=== PATIENT | female | born 1965 | race Caucasian/White ===

== ENCOUNTER 2025-08-05 07:21 | Day surgery (SDC) | payer OTHER, SELFPAY ==
[2025-08-05] VITALS (11 sets, daily range): BP systolic 85–130; BP diastolic 52–69; PULSE 45–91; RESP 14–16; TEMP 36.1–36.6; O2SAT 96–100; BMI 32.8
--- NOTE | 2025-08-05 07:32 | HP.PCM_ITS ---
[facility] - General General Date of Service: 08/05/25 HPI Narrative HUSSAIN DONNELLY, is a 60 F who presents for screening colonoscopy. Patient last colonoscopy was in 2019 did have a polyp at that time. Patient's mom did pass at age 48 due to colon cancer?metastatic at diagnosis, patient's maternal uncle also had colon cancer. Patient has bowel movements daily denies any blood. Denies any chronic abdominal pain/nausea/vomiting/reflux. [facility] Medical History (Updated 08/05/25 @ 08:[address] Isiah Smalls MD) Normal colonoscopy Cancer Post-menopausal Thyroid disease Anemia Non-smoker History of stress test Family history of colon cancer Personal history of colonic polyps Screening for colon cancer Home Medications ?Medication ?Instructions ?Recorded ?Last Taken ?Type levothyroxine 100 mcg tablet 100 mcg PO DAILY 07/31/25 08/05/25 05:00 History triamcinolone acetonide 55 mcg 1 spray intranasal RIMMA Y PRN 07/31/25 Unknown History nasal spray aerosol (Aller-Abhinav) ALLERGIES Allergy/AdvReac Type Severity Reaction Status Date / Time Penicillins (PCN) Allergy Intermediate HIVES Verified 08/05/25 07:45 Surgical History (Updated 08/05/25 @ 08:[address] Isiah Smalls MD) S/P colonoscopic polypectomy History of hysterectomy Social History Smoking Status: Never smoker Past Medical/Surgical History Planned Operation Planned Operative Procedure(s): COLONOSCOPY Previous Hospitalizations/Surgeries HX Hospitalizations: No Any Problems With Anesthesia: No You/Your Family Experience Fever (Hyperthermia) With Anes: No Cholinesterase deficiency: No Cardiovascular Hx of Irregular Heartbeat and/or Afib: No Hx Heart Attack: No Hx Congestive Heart Failure: No Hx Hypertension: No Hx Pacemaker: No Respiratory Hx Chronic Obstructive Pulmonary Disease (COPD): No Hx Asthma: No Hx Emphysema: No Hx Sleep Apnea: No Hx Respiratory Tract Infection/Cold (presently): No Do You Snore Loudly (louder than talking or can be heard): No Do You Often Feel Tired/ Fatigued/ Sleepy Dring Daytime?: No Has Anyone Observed You Stop Breathing During Sleep?: No Result (for STOP score): Negative Smoking Status: Never smoker Gastrointestinal Hx Ulcer: No Neurological Hx Seizures: No Hx Headaches: No Does patient have nerve stimulator: No Reproduction : No Allergies Penicillins (PCN) Allergy (Intermediate, Verified 08/05/25 07:45) HIVES Discharge Is Pt Admitted From a Long Term, or a Skilled Nursing: No Who Could Help: After D/C, Where Do you Plan to Go: Return Home Physical Exam Const alert, oriented x3 and no apparent distress HEENT normocephalic and head/scalp atraumatic Resp normal respiratory effort Cardio regular rate GI soft to palpation and non-tender; Negative for non-distended Palpation: Negative for guarding Extremity no clubbing, cyanosis or edema Skin no rashes or lesions noted Neuro CN's II-XII intact bilaterally Psych mental status grossly normal Assessment & Plan Assessment/Plan (1) Personal history of colonic polyps: (2) Family history of colon cancer: Surgery Risks - Colonoscopy I discussed with the patient the risks of the procedure: Yes Risks Include but are not Limited To: Risks include but are not limited to: Bleeding, perforation requiring further surgery, inability to complete colonoscopy requiring barium enema.
[2025-08-05] MEDS: Lactated Ringers 1,000 ML 15 ML IV (07:57)
--- NOTE | 2025-08-05 08:27 | PCM.PRE.AN2 ---
ASA Classification* ASA Classification ASA Classification: 2 Assessment & Plan Anesthesia* Anesthesia Assessment Anesthesia Assessment: Discussed sedation and/or anesthesia options, risks, benefits, and alternatives with patient/parents/legal guardian/POA. Questions invited. The patient/parents/legal guardian/POA seems to understand and agrees to proceed with anesthesia plan. Reviewed the physical assessment, medical history, allergy history and patient home medications list prior to surgery/procedure/anesthetic and documented any changes. Performed airway and anesthesia risk assessments. 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 When Was Last Pacemaker Check QUESTION #4 FULL TEXT: You/Your Family Experience fever (hyperthermia) with Anesthesia Last Oral Intake Last Oral intake: Last Oral Intake NPO since 18:00 08/05/25 07:46 Meds taken in AM with sips of Yes 08/05/25 07:46 water? Meds patient instructed to see med list 08/05/25 07:46 take am of surgery Any additional information?: Yes Meds taken in AM with sips of water?: Yes PONV PONV - classified advertising manager: PONV - classified advertising manager Female Yes 07/31/25 10:21 HX of Motion Sickness Yes 07/31/25 10:21 HX of N/V After Surgery No 07/31/25 10:21 Non-Smoker Yes 07/31/25 10:21 Duration of Surgery greater No 07/31/25 10:21 than 60 minutes Number of Risk Factors 3 07/31/25 10:21 PONV Score Moderate Risk 07/31/25 10:21 Height & Weight Height & Weight: Anesthesia: Height & Weight Height 5 ft 3 in 08/05/25 07:46 Weight: 84 kg 08/05/25 07:46 Body Mass Index (BMI) 32.8 08/05/25 07:46 Respiratory Assessment Respiratory Assessment - classified advertising manager: Respiratory Tract Infection Hx - classified advertising manager Hx Respiratory Tract Infection No 08/05/25 07:33 STOP Sleep Apnea STOP Sleep Apnea - classified advertising manager: STOP Sleep Apnea - classified advertising manager Hx Hypertension No 08/05/25 07:33 Hx Sleep Apnea No 08/05/25 07:33 CPAP BIPAP Do you snore loudly (louder No 08/05/25 07:33 than talking or can be heard Do you often feel tired/ No 08/05/25 07:33 fatigued/ sleepy during daytime? Has anyone observed you stop No 08/05/25 07:33 breathing during sleep? STOP Results Negative 08/05/25 07:33 QUESTION #5 FULL TEXT : Do you snore loudly (louder than talking or can be heard through closed doors)? Tobacco Use History Tobacco Use History - classified advertising manager: Tobacco Use History - classified advertising manager Tobacco Use Smoking Status Never smoker 08/05/25 07:33 Hx Tobacco Use No 07/31/25 10:21 Years Smoking Packs Smoked per Day Smoking Cessation Date was within the last 15 years Hx Smoking Cessation Date Hx Smoking Cessation Counseling Hematologic Medial History Hematologic Hx - classified advertising manager: Hematologic Medical Hx - manager park Hx of Blood Transfusion No 07/31/25 10:21 Hx of Transfusion in last 3 No 07/31/25 10:21 Months Date of Last Transfusion (if within last 3 months) Ever experience any problems No 07/31/25 10:21 with transfusion(s)? Specify any problems Hx of Preganancy in last 3 No 07/31/25 10:21 Months Nurse Filling Out Transfusion [facility] 07/31/25 10:21 & Questions: Date: 07/31/25 07/31/25 10:21 Time: 10:07/31/25 10:21 Patient unable to answer at this time (ie. confused, unrespo /Reproduction History /Reproductive History - classified advertising manager: /Reproductive Hx- classified advertising manager Hx Now No 08/05/25 07:33 Gestational Age (in weeks): EDC: Hx Hx Para Hx Section SAB Active Medications Active Medications: Current Medications Generic Name Dose Route Start Last Admin Trade Name Freq PRN Reason Stop Dose Admin Lactated Ringer's 1,000 mls @ 15 mls/hr 08/05/25 07:30 08/05/25 07:57 IV 15 mls/hr .Q48H TEDDY Administration PFSH Medical History (Updated 08/05/25 @ 08:[address] Isiah Smalls MD) Normal colonoscopy Cancer Post-menopausal Thyroid disease Anemia Non-smoker History of stress test Family history of colon cancer Personal history of colonic polyps Screening for colon cancer Home Medications ?Medication ?Instructions ?Recorded ?Last Taken ?Type levothyroxine 100 mcg tablet 100 mcg PO DAILY 07/31/25 08/05/25 05:00 History triamcinolone acetonide 55 mcg 1 spray intranasal DAILY PRN 07/31/25 Unknown History nasal spray aerosol (Aller-Abhinav) ALLERGIES Allergy/AdvReac Type Severity Reaction Status Date / Time Penicillins (PCN) Allergy Intermediate HIVES Verified 08/05/25 07:45 Surgical History (Updated 08/05/25 @ 08:[address] Isiah Smalls MD) S/P colonoscopic polypectomy History of hysterectomy Social History Smoking Status: Never smoker Review of Systems (Anesthesia) ROS Narrative System reviewed and no additional complaints, except as documented.
--- NOTE | 2025-08-05 08:30 | COLBX_PTH ---
PATIENT: HUSSAIN DONNELLY LOC: EN U#:[id number] AGE/SX: 60/F ROOM: RE08/05/[address]: Dr. Trista Camejo MD : 1965 BED: DIS: 08/05/2025 SPEC #: [id number] RECD: 08/05/25 11:37 STATUS: ASHLEE REDolores #: [id number] TYRON: 08/05/25 08:[address]: Trista Camejo DEPT: SURGICAL PATHOLOGY RECD BY: Jim Baker ENTERED: 08/05/25 13:24 SP TYPE: COLON BX OTHR DR: HAO Price Tissues: A - Descending colon B - Rectum, NOS Procedures: Surgery Specimen Level IV HEADER OPERATION: Colonoscopy with polypectomy PRE-OP DIAGNOSIS: Personal history of colonic polyps, family history of colon cancer TISSUE SUBMITTED: A- Descending polyp, B- Rectal polyp MICROSCOPIC DIAGNOSIS A. Descending colon, polyp, biopsy: * Colonic mucosa with dilated crypts and thermal artifact B. Rectum, polyp, biopsy: * Tubular adenoma * Hyperplastic polyp MICROSCOPIC DESCRIPTION Slides are reviewed. GROSS DESCRIPTION A. Received in fixative is one container labeled with the patient's name and designated Descending polyp. The specimen consists of one irregular fragment of leyva tissue that measures 0.3 cm. The specimen is totally submitted in one cassette. B. Received in fixative is one container labeled with the patient's name and designated Rectal polyp. The specimen consists of multiple irregular fragments of leyva tissue that in aggregate measure 1.1 x 0.3 x 0.2 cm. The specimen is totally submitted in one cassette. [place] 08/05/2025 CPT:25476h0
--- NOTE | 2025-08-05 09:39 | OP.COLON_ITS ---
Patient Name: Yolanda Herrmann Procedure Date: 08/05/2025 9:01 AM Date of : 1965 Age: 60 Procedure: Colonoscopy Indications: High risk colon cancer surveillance: Personal history of colonic polyps, Family history of colon cancer in a first-degree relative before age 60 years Providers: Trista Camejo MD Referring MD: Trista Camejo MD Medicines: Monitored Anesthesia Care Patient Profile: This is a 60 year old female. Last Colonoscopy: 2018. Complications: No immediate complications. Procedure: Pre-Anesthesia Assessment: - Prior to the procedure, a History and Physical was performed, and patient medications and allergies were reviewed. The patient's tolerance of previous anesthesia was also reviewed. The risks and benefits of the procedure and the sedation options and risks were discussed with the patient. All questions were answered, and informed consent was obtained. Prior Anticoagulants: The patient has taken no anticoagulant or antiplatelet agents. ASA Grade Assessment: Per anesthesia. After reviewing the risks and benefits, the patient was deemed in satisfactory condition to undergo the procedure. After I obtained informed consent, the scope was passed under direct vision. Throughout the procedure, the patient's blood pressure, pulse, and oxygen saturations were monitored continuously. The colonoscope was introduced through the anus and advanced to the cecum, identified by the appendiceal orifice, ileocecal valve and palpation. The colonoscopy was performed without difficulty. The patient tolerated the procedure well. The quality of the bowel preparation was good. The colonoscopy was performed without difficulty. The patient tolerated the procedure well. The quality of the bowel preparation was good. Scope In: 9:08:34 AM Scope Withdrawal Time 0 hours 13 minutes 1 second Scope Out: 9:28:50 AM Total Procedure Duration Time 0 hours 20 minutes 16 seconds Findings: The perianal and digital rectal examinations were normal. A less than 5 mm polyp was found in the descending colon. The polyp was semi-pedunculated. The polyp was removed with a hot snare. Resection and retrieval were complete. Two sessile polyps were found in the rectum. The polyps were 2 to 3 mm in size. These polyps were removed with a hot snare. Resection and retrieval were complete. Multiple sessile polyps were found in the rectum. The polyps were less than 5 mm in size. These polyps were removed with a cold biopsy forceps. Resection and retrieval were complete. The exam was otherwise without abnormality on direct and retroflexion views. Impression: - One less than 5 mm polyp in the descending colon, removed with a hot snare. Resected and retrieved. - Two 2 to 3 mm polyps in the rectum, removed with a hot snare. Resected and retrieved. - Multiple less than 5 mm polyps in the rectum, removed with a cold biopsy forceps. Resected and retrieved. - The examination was otherwise normal on direct and retroflexion views. Recommendation: - Discharge patient to home. - Resume previous diet. - Continue present medications. - Await pathology results. - Repeat colonoscopy in 3 years for surveillance based on pathology results. Procedure Code(s): --- Professional --- 65154, PT, Colonoscopy, flexible; with removal of tumor(s), polyp(s), or other lesion(s) by snare technique [id number], 60, Colonoscopy, flexible; with biopsy, single or multiple Diagnosis Code(s): --- Professional --- Z86.010, Personal history of colonic polyps D12.4, Benign neoplasm of descending colon D12.8, Benign neoplasm of rectum Z80.0, Family history of malignant neoplasm of digestive organs CPT copyright 2021 [employer]. All rights reserved. The codes documented in this report are preliminary and upon general superintendent review may be revised to meet current compliance requirements. MD Trista Chung MD 08/05/2025 9:38:08 AM This report has been signed electronically. Number of Addenda: 0 Note Initiated On: 08/05/2025 9:01 AM
--- NOTE | 2025-08-05 09:40 | PCM.POST.ANE ---
Anesthesia: Postop Eval I Current Vital Signs Temperature: 97 F Pulse Rate: 79 Blood Pressure: 88/52 Respiratory Rate: 16 Pulse Ox: 97 Oxygen Delivery Method: Room Air Assessment Airway patent: Yes Spontaneous unlabored respirations: Yes Mental status: Asleep nausea: No Vomiting: No Anesthesia Complication: No Fluid Hydration Crystalloid volume administer (ml): 400 Total IV fluid infused: 400 Progress Note Anesthesia document: Postop Eval 1 completed: Yes
--- NOTE | 2025-08-05 12:31 | PCM.POSTANE2 ---
Anesthesia Postop Eval I Sum Postop Eval Completion status Anesthesia document: Postop Eval 1 completed: Yes Anesthesia Postop Eval I Summary Anesthesia Postop Eval I Summary: Anesthesia Postop Eval I: Assessment Summary Airway patent Yes 08/05/25 09:40 [email or web address] Spontaneous unlabored Yes 08/05/25 09:40 [email or web address] respirations Mental status Asleep 08/05/25 09:40 [email or web address] nausea No 08/05/25 09:40 [email or web address] Vomiting No 08/05/25 09:40 [email or web address] Anesthesia Postop Eval I: Fluid Summary Crystalloid volume administer 400 08/05/25 09:40 [email or web address] (ml) Colloids volume administered ( ml) Blood Product volume administered (ml) Total IV fluid infused 400 08/05/25 09:40 [email or web address] Anesthesia Postop Eval I: Summary Notes Anesthesia Complication No 08/05/25 09:40 [email or web address] Anesthesia Complication Comment: Post-operative progress note Anesthesia: Postop Eval II Evaluation Mental status: Awake and Calm Pain Level: 0 nausea: No Vomiting: No Complications Anesthesia Complication: No
== END 2025-08-05 10:36 | disposition home or self-care (01) ==
LOC: EN 07:22 → AC 07:25
PROVIDERS: PCP Physician Assistant; Referring Provider Surgery; Visit Provider Surgery
PROC: 0DJD8ZZ Inspection of Lower Intestinal Tract, Via Natural or Artificial Opening Endoscopic (ICD-10-PCS; CPT 45378; principal; 2025-08-05 08:25)
DX: Z12.11 Encounter for screening for malignant neoplasm of colon (principal); Z86.0100 Personal history of colon polyps, unspecified; Z80.0 Family history of malignant neoplasm of digestive organs; Z90.710 Acquired absence of both cervix and uterus; K63.5 Polyp of colon; K62.1 Rectal polyp
CPT/HCPCS: 45380; 45385; 88305; J2405

== ENCOUNTER → 2025-10-29 | Outpatient (CLI) | payer OTHER, SELFPAY | END | disposition home or self-care (01) | LOC: PSN 11:52 | PROVIDERS: PCP Physician Assistant; Referring Provider Physician Assistant; Visit Provider Physician Assistant | DX: R00.1 Bradycardia, unspecified (principal) | CPT/HCPCS: 93225; 93226 ==